=== PATIENT | female | born 1950 | race Caucasian/White ===

== ENCOUNTER → 2022-11-26 | Outpatient (CLI) | payer MEDICARE ==
[2022-11-26 11:48] LABS: BASO # 0.03 K/mm3 (0.02-0.10); EOS # 0.14 K/mm3 (0.04-0.40); EOS % 1.8 % (1.0-5.0); HEMATOCRIT 43.2 % (37.0-47.0); HEMOGLOBIN 14.6 g/dL (12.5-16.0); LYMPH# 3.53 K/mm3 (1.50-4.00); MEAN CELL VOLUME 86 fl (78-100); MEAN CORPUSCULAR HEMOGLOBIN 29 pg (27-31); MEAN CORPUSCULAR HGB CONC 34 g/dL (33-37); MEAN PLATELET VOLUME 9.6 fl (7.4-10.4); MONO # 0.54 K/mm3 (0.20-0.80); NEU # 3.39 K/mm3 (1.40-6.50); PLATELET COUNT 279 K/mm3 (130-400); RED BLOOD COUNT 5.02 M/mm3 (4.10-5.30); RED CELL DISTRIBUTION WIDTH 12.4 % (11.5-14.5); WHITE BLOOD COUNT 7.7 K/mm3 (4.8-10.8)
[2022-11-26 11:50] LABS: POTASSIUM 4.7 mmol/L (3.5-5.1)
[2022-11-26 11:51] LABS: ALBUMIN 4.4 g/dL (3.4-4.8); CALCIUM 11.4 mg/dL (8.3-10.5)
[2022-11-26 11:53] LABS: TOTAL PROTEIN 7.7 g/dL (6.2-8.1)
[2022-11-26 11:55] LABS: TOTAL BILIRUBIN 0.4 mg/dL (0.2-1.2)
[2022-11-26 12:01] LABS: MAGNESIUM 2.01 mg/dL (1.60-2.60)
[2022-11-26 12:16] LABS: URINE COLOR YELLOW
[2022-11-26 12:17] LABS: URINE APPEARANCE CLEAR; URINE BILIRUBIN NEGATIVE (NEGATIVE); URINE BLOOD NEGATIVE (NEGATIVE); URINE KETONE NEGATIVE (NEGATIVE); URINE LEUKOCYTE ESTERASE TRACE (NEGATIVE); URINE MUCUS PRESENT (NOT PRESENT); URINE NITRATE NEGATIVE (NEGATIVE); URINE PROTEIN(semi-quant) 1+ (NEGATIVE); URINE UROBILINOGEN NORMAL (NORMAL)
[2022-11-26 12:56] LABS: ERYTHROCYTE SEDIMENTATION RATE 33 mm/hr (0-30)
== END ==
LOC: LAB 11:26
PROVIDERS: Internal Medicine
DX: I10 Essential (primary) hypertension (principal); M47.812 Spondylosis without myelopathy or radiculopathy, cervical region; K21.9 Gastro-esophageal reflux disease without esophagitis; K52.9 Noninfective gastroenteritis and colitis, unspecified; R73.9 Hyperglycemia, unspecified; R07.89 Other chest pain; R47.01 Aphasia; E78.2 Mixed hyperlipidemia

== ENCOUNTER → 2022-11-27 | Outpatient (CLI) | payer MEDICARE ==
[2022-11-28 11:23] LABS: PTH,INTACT 47.1 pg/mL (6.6-88.9)
[2022-11-28 17:42] LABS: CALCIUM, IONIZED, SERUM 1.35 mmol/L (1.19-1.41)
== END ==
LOC: RAD 09:29
PROVIDERS: Internal Medicine
DX: R47.01 Aphasia (principal); E83.52 Hypercalcemia

== ENCOUNTER → 2024-03-05 | Outpatient (CLI) | payer MEDICARE ==
[2024-03-05 16:17] LABS: BASO # 0.02 K/mm3 (0.02-0.10); EOS # 0.09 K/mm3 (0.04-0.40); EOS % 1.2 % (1.0-5.0); HEMATOCRIT 41.5 % (37.0-47.0); HEMOGLOBIN 13.8 g/dL (12.5-16.0); LYMPH# 3.16 K/mm3 (1.50-4.00); MEAN CELL VOLUME 86 fl (78-100); MEAN CORPUSCULAR HEMOGLOBIN 29 pg (27-31); MEAN CORPUSCULAR HGB CONC 33 g/dL (33-37); MEAN PLATELET VOLUME 9.3 fl (7.4-10.4); MONO # 0.55 K/mm3 (0.20-0.80); NEU # 3.92 K/mm3 (1.40-6.50); PLATELET COUNT 330 K/mm3 (130-400); RED BLOOD COUNT 4.84 M/mm3 (4.10-5.30); RED CELL DISTRIBUTION WIDTH 12.6 % (11.5-14.5); WHITE BLOOD COUNT 7.8 K/mm3 (4.8-10.8)
[2024-03-05 16:19] LABS: ALBUMIN 4.4 g/dL (3.4-4.8)
[2024-03-05 16:20] LABS: CALCIUM 10.5 mg/dL (8.3-10.5)
[2024-03-05 16:21] LABS: TOTAL PROTEIN 7.5 g/dL (6.2-8.1)
[2024-03-05 16:23] LABS: TOTAL BILIRUBIN 0.3 mg/dL (0.2-1.2)
[2024-03-05 16:27] LABS: MAGNESIUM 1.89 mg/dL (1.60-2.60)
== END ==
LOC: LAB 15:55
PROVIDERS: Internal Medicine
DX: E11.9 Type 2 diabetes mellitus without complications (principal); I10 Essential (primary) hypertension; K90.9 Intestinal malabsorption, unspecified; E78.2 Mixed hyperlipidemia

== ENCOUNTER → 2024-06-11 | Outpatient (CLI) | payer MEDICARE ==
[2024-06-11 12:27] LABS: BASO # 0.03 K/mm3 (0.02-0.10); EOS # 0.14 K/mm3 (0.04-0.40); EOS % 1.6 % (1.0-5.0); HEMATOCRIT 42.2 % (37.0-47.0); HEMOGLOBIN 14.3 g/dL (12.5-16.0); LYMPH# 3.73 K/mm3 (1.50-4.00); MEAN CELL VOLUME 85 fl (78-100); MEAN CORPUSCULAR HEMOGLOBIN 29 pg (27-31); MEAN CORPUSCULAR HGB CONC 34 g/dL (33-37); MEAN PLATELET VOLUME 9.3 fl (7.4-10.4); MONO # 0.58 K/mm3 (0.20-0.80); NEU # 4.01 K/mm3 (1.40-6.50); PLATELET COUNT 349 K/mm3 (130-400); RED BLOOD COUNT 4.95 M/mm3 (4.10-5.30); RED CELL DISTRIBUTION WIDTH 12.4 % (11.5-14.5); WHITE BLOOD COUNT 8.5 K/mm3 (4.8-10.8)
[2024-06-11 12:31] LABS: ALBUMIN 4.5 g/dL (3.4-4.8)
[2024-06-11 12:32] LABS: CALCIUM 10.6 mg/dL (8.3-10.5); URINE APPEARANCE CLEAR (CLEAR); URINE BILIRUBIN NEGATIVE (NEGATIVE); URINE BLOOD NEGATIVE (NEGATIVE); URINE COLOR YELLOW (YELLOW); URINE GLUCOSE NEGATIVE (NEGATIVE); URINE KETONE NEGATIVE (NEGATIVE); URINE LEUKOCYTE ESTERASE 1+ (NEGATIVE); URINE NITRATE NEGATIVE (NEGATIVE); URINE PROTEIN(semi-quant) NEGATIVE (NEGATIVE)
[2024-06-11 12:33] LABS: URINE MUCUS PRESENT (NOT PRESENT)
[2024-06-11 12:34] LABS: TOTAL PROTEIN 7.7 g/dL (6.2-8.1)
[2024-06-11 12:35] LABS: TOTAL BILIRUBIN 0.4 mg/dL (0.2-1.2)
[2024-06-11 12:40] LABS: MAGNESIUM 1.87 mg/dL (1.60-2.60)
== END ==
LOC: LAB 11:56
PROVIDERS: Internal Medicine
DX: E11.9 Type 2 diabetes mellitus without complications (principal); I10 Essential (primary) hypertension